=== PATIENT | male | born 1935 | race Caucasian/White ===

== ENCOUNTER 2018-01-14 10:01 | Inpatient (IN) ==
[2018-01-14] MEDS ORDERED: Acetaminophen 325 MG TABLET PO PRN (20:04)
[2018-01-14] MEDS ORDERED: *HR* HYDROcodone/Acet 5/325 mg TABLET PO PRN (20:07)
[2018-01-14] MEDS ORDERED: risperiDONE 0.25 MG TABLET PO SCH (21:00)
[2018-01-15 05:48] LABS: Basophils % 0.3 %; Eosinophils # 0.2 K/mcL (0.0-0.6); Eosinophils % 2.2 %; Hematocrit 23.5 % (37.5-50.1); Hemoglobin 7.9 g/dL (12.9-16.9); Immature Granulocytes % 0.9 % (0-4); Lymphocytes # 1.7 K/mcL (0.6-4.6); Lymphocytes % 18.9 %; Mean Corpuscular HGB Conc 33.6 g/dL (31.6-35.5); Mean Corpuscular Hemoglobin 31.2 pg (28.0-33.3); Mean Corpuscular Volume 92.9 fL (83.0-100.0); Mean Platelet Volume 10.6 fL (9.4-12.4); Monocytes # 0.9 K/mcL (0.0-1.3); Monocytes % 10.3 %; Neutrophils # 6.2 K/mcL (1.6-8.9); Platelet Count 164 K/mcL (140-400); Red Blood Count 2.53 M/mcL (4.19-5.50); Red Cell Distribution Width 13.4 % (11.5-14.5); Segmented Neutrophils % 67.4 %
[2018-01-15 05:49] LABS: INR 1.2; Prothrombin Time 12.9 Seconds (9.4-12.1)
[2018-01-15] MEDS ORDERED: *HR* Enoxaparin 40 MG/0.4 ML SYRINGE SQ SCH (06:00)
[2018-01-15 06:03] LABS: BUN/Creatinine Ratio 34 (6-26); Blood Urea Nitrogen 22 mg/dL (8-23); Carbon Dioxide 28 mEq/L (23-29); Chloride 105 mEq/L (98-107); Glucose 96 mg/dL (70-105); Osmolality,Calculated 289 (280-300); Potassium 3.7 mEq/L (3.5-5.1); Sodium 138 mEq/L (136-145); eGFR For African Americans > 60 (> 60); eGFR For Non-African Americans > 60 (> 60)
[2018-01-15] MEDS ORDERED: Cholecalciferol (D-3) 1,000 UNIT TABLET PO SCH (09:00)
[2018-01-15] MEDS ORDERED: Aspirin Enteric Coated 81 MG Tablet PO SCH (09:00)
[2018-01-15 14:16] VITALS: BP 108/54
[2018-01-15] MEDS ORDERED: Aspirin 325 MG TABLET PO STA (14:45)
[2018-01-15] MEDS ORDERED: Nitroglycerin 0.4 MG TAB.SUBL SL PRN (14:49)
[2018-01-15 15:00] LABS: Basophils % 0.3 %; Eosinophils # 0.2 K/mcL (0.0-0.6); Eosinophils % 2.2 %; Hematocrit 24.2 % (37.5-50.1); Hemoglobin 8.3 g/dL (12.9-16.9); Immature Granulocytes % 1.1 % (0-4); Lymphocytes # 1.6 K/mcL (0.6-4.6); Lymphocytes % 17.6 %; Mean Corpuscular HGB Conc 34.3 g/dL (31.6-35.5); Mean Corpuscular Hemoglobin 31.9 pg (28.0-33.3); Mean Corpuscular Volume 93.1 fL (83.0-100.0); Mean Platelet Volume 9.9 fL (9.4-12.4); Monocytes # 0.9 K/mcL (0.0-1.3); Monocytes % 9.7 %; Neutrophils # 6.3 K/mcL (1.6-8.9); Platelet Count 189 K/mcL (140-400); Red Cell Distribution Width 13.5 % (11.5-14.5); Segmented Neutrophils % 69.1 %
[2018-01-15 15:06] LABS: INR 1.2; Prothrombin Time 12.9 Seconds (9.4-12.1)
[2018-01-15 15:08] LABS: Activated Partial Thrombo Time 26.5 Seconds (26.0-36.0)
[2018-01-15 15:16] LABS: BUN/Creatinine Ratio 32 (6-26); Blood Urea Nitrogen 22 mg/dL (8-23); Carbon Dioxide 29 mEq/L (23-29); Chloride 103 mEq/L (98-107); Glucose 102 mg/dL (70-105); Osmolality,Calculated 286 (280-300); Potassium 3.6 mEq/L (3.5-5.1); Sodium 136 mEq/L (136-145); eGFR For African Americans > 60 (> 60); eGFR For Non-African Americans > 60 (> 60)
[2018-01-15 16:09] LABS: Thyroid Stimulating Hormone 3.367 mcIU/mL (0.340-5.600)
--- NOTE | 2018-01-15 17:13 | Discharge Summary ---
Orders not resulted at time of discharge: Pending orders 01/15/18 14:49 EKG [ECG 12 lead ECG] [ECG] Stat 01/15/18 16:50 Troponin I Stat Date of Encounter: 01/15/18 Time of Encounter: 17:11 - Discharge Diagnosis (1) Chest pain Priority: Primary Status: Acute Qualifiers: Qualified Code(s): I20.0 - Unstable angina (2) Unstable angina Priority: Primary Status: Acute (3) Hip fracture Priority: Secondary Status: Acute Qualifiers: Encounter type: subsequent encounter Qualified Code(s): S72.001D - Fracture of unspecified part of neck of right femur, subsequent encounter for closed fracture with routine healing (4) Atrial fibrillation Priority: Secondary Status: Chronic Qualifiers: Atrial fibrillation type: persistent Qualified Code(s): I48.1 - Persistent atrial fibrillation (5) Dementia Priority: Secondary Status: Chronic Comments: moderate Qualifiers: Alzheimer's disease onset: late-onset Dementia behavioral disturbance: without behavioral disturbance Qualified Code(s): G30.1 - Alzheimer's disease with late onset; F02.80 - Dementia in other diseases classified elsewhere without behavioral disturbance; F02.80 - Dementia in other diseases classified elsewhere without behavioral disturbance; F02.80 - Dementia in other diseases classified elsewhere without behavioral disturbance (6) Urinary retention Priority: Secondary Status: Acute Hospital course: Mr. Gilliland is a 82 year old male with pmh of atrial fib s/p right hip fracture who experienced chest pain today. No prior cardiovascular history known , but bedsite ECG showed ST depression in leads V1/2/3, which appear to be new today. Hypodermically stable, he recieved asa 325mg none coated X1. Baseline Bp on the low side, and we held off on nitro. His pain resolved and we obtain blood work. His intial chest pain resolved but again presented in the same place, left side without radiation. Another set of ECG was obtained without any changes. Initial trop neg. Improved Hgb from prior 7.9 to 8.3. Overall appear compfortable. Another set of trop was ordered and will be adding D. Dimer. Second Trop was also neg. Spoke with cards over the phone, and given that pt is showing new depression in other leads, it was recommended that he is transferred from rehab inpatient unit to main hospital Discharge discussed with: other - Time Spent with Patient Total time spent providing and/or coordinating discharge services: Greater than 30 minutes - Discharge Medications Home Medications: Aspirin [Lo-Dose Aspirin EC] 81 mg PO DAILY 01/10/18 [History] Donepezil HCl [Aricept] 5 mg PO DAILY 01/10/18 [History] Acetaminophen [Tylenol] 650 mg PO Q6HR PRN tablet 01/14/18 [Rx] Cholecalciferol (D-3) [Vitamin D] 2,000 unit PO DAILY tablet 01/14/18 [Rx] Enoxaparin [Lovenox] 40 mg SQ 0600 syringe 01/14/18 [Rx] Metoprolol [Lopressor] 25 mg PO BID tablet 01/14/18 [Rx] risperiDONE [RisperDAL] 0.25 mg PO HS tablet 01/14/18 [Rx] Allergies/Adverse Reactions: 3 Allergy/AdvReac Type Severity Reaction Status Date / Time No Known Allergies Allergy Verified 01/10/18 15:12 Date of admission: 01/14/18 19:28 Primary care physician: PCP NONE Consults: 01/14/18 20:09 Consult to Occupational Therapy [CONS] Routine Comment: Eval and Treat Reason for Consult: Eval and Treat Does patient have active BEDREST order?: No Is patient medically & hemodynamically stable?: Yes Consult to Physical Therapy [CONS] Routine Comment: Eval and Treat Reason for Consult: Eval and Treat Does patient have active BEDREST order?: No Is patient medically & hemodynamically stable?: Yes Consult to Recreational Therapy [CONS] Routine Comment: Consult to Stonemason Supervisor [CONS] Routine Reason for SW Consult: Discharge Planning - Constitutional Vitals: Temp Pulse Resp BP Pulse Ox 97.6 F 96 16 108/54 98 01/15/18 11:00 01/15/18 16:07 01/15/18 16:07 01/15/18 16:07 01/15/18 16:07 General appearance: Present: A&O X 2 - Head Head exam: Present: atraumatic, normocephalic - Eye Eye exam: Present: PERRL, conjuntiva pink, sclera anicteric Pupils: Present: PERRL - Neck Neck exam general surgery: Present: supple, trachea midline. Absent: lymphadenopathy - Respiratory Respiratory exam: Present: CTAB. Absent: accessory muscle use, rales, rhonchi, wheezes - Cardiovascular Cardiovascular exam: Present: RRR, +S1, +S2. Absent: diastolic murmur, gallop, rubs, systolic murmur - GI/Abdominal GI/Abdominal exam: Present: normal bowel sounds, soft, no peritoneal signs. Absent: distended, tenderness - Extremities Exam Extremities exam: Present: pedal edema, warm, radial pulses palpable and symmetrical. Absent: calf tenderness, cyanotic Additional comments: right hip incision, painful right lower extremity ROM at the hip area - Neurological Exam Neurological exam: Present: CN II-XII intact, no focal deficits. Absent: normal gait, pronater drift, facial droop, speech deficit - Skin Skin exam: Present: dry, intact - Patient Status Disposition: Transfer Intermediate Care Fac Condition: Serious - Discharge Instructions Follow Up With: NONE,PCP [Primary Care Provider] -
--- NOTE | 2018-01-18 09:58 | Internal Med History&Physical ---
Date of Encounter: 01/18/18 Time of Encounter: 09:56 Internal Medicine - H&P: HPI History of present illness: This patient was discharged before he could be seen by me or the cross-covering provider. please see discharge summary, day of his admission. Past Med Surg Social Fam HX - Past Medical History Medical history: atrial fibrillation, dementia, hyperlipidemia Psychiatric history: no psych history - Past Surgical History Surgical History: appendectomy - Social History Smoking Status: Never smoker Smokeless Tobacco Status: No Alcohol use: none Drug use: none - Family History Mother Living Status: Internal Medicine - H&P: Meds Aspirin [Lo-Dose Aspirin EC] 81 mg PO DAILY 01/10/18 [History] Donepezil HCl [Aricept] 5 mg PO DAILY 01/10/18 [History] Acetaminophen [Tylenol] 650 mg PO Q6HR PRN tablet 01/14/18 [Rx] Cholecalciferol (D-3) [Vitamin D] 2,000 unit PO DAILY tablet 01/14/18 [Rx] Enoxaparin [Lovenox] 40 mg SQ 0600 syringe 01/14/18 [Rx] Metoprolol [Lopressor] 25 mg PO BID tablet 01/14/18 [Rx] risperiDONE [RisperDAL] 0.25 mg PO HS tablet 01/14/18 [Rx] 3 Allergy/AdvReac Type Severity Reaction Status Date / Time No Known Allergies Allergy Verified 01/10/18 15:12 All Systems PM: A 10-system review of systems was performed and is negative for pertinent findings except as documented above in the HPI. - Constitutional Vitals: Temp Pulse Resp BP Pulse Ox 97.6 F 96 16 108/54 98 01/15/18 11:00 01/15/18 16:07 01/15/18 16:07 01/15/18 16:07 01/15/18 16:07 General appearance: Present: A&O X 2 Internal Med - H&P Results - Labs CBC & Chem 7: 01/15/18 14:45 01/15/18 14:45
--- NOTE | 2018-01-19 00:33 | Electrocardiograph Report ---
[place] [id number] Test Date: 2018-01-15 Pat Name: Alfie Gilliland Department: 2001 Room: 115 Gender: M [facility] Internship: : 1935 Requested By: Edgar Mccallum Order Number: [id number] Reading MD: Alcira Claire Measurements Intervals [place] Rate: 94 P: CT: 0 QRS: -26 QRSD: 97 T: -31 QT: 379 QTc: 430 Interpretive Statements ATRIAL FIBRILLATION BORDERLINE LEFT AXIS DEVIATION [QRS AXIS < -20] MODERATE ST DEPRESSION [0.05+ mV ST DEPRESSION] LEAD II NOT SUITABLE FOR INTERPRETATION Electronically Signed On 01-19-2018 0:31:52 EDT by Alcira Claire
== END 2018-01-15 19:00 | disposition short-term general hospital (02) | DRG 560 ==
LOC: INPGRE 19:28

== ENCOUNTER 2018-01-20 14:38 | Inpatient (IN) ==
[2018-01-20] MEDS ORDERED: Nitroglycerin 0.4 MG TAB.SUBL SL PRN (20:34)
[2018-01-20] MEDS ORDERED: DiphenhydraMINE CREAM 28.4 GM TUBE TP PRN (20:34)
[2018-01-20] MEDS: risperiDONE 1 MG TABLET PO SCH (22:30)
[2018-01-21] MEDS: *HR* Enoxaparin 40 MG/0.4 ML SYRINGE SQ SCH (06:45)
[2018-01-21 07:04] LABS: Basophils # 0.1 K/mcL (0.0-0.2); Basophils % 0.4 %; Eosinophils # 0.2 K/mcL (0.0-0.6); Eosinophils % 1.6 %; Hematocrit 29.9 % (37.5-50.1); Hemoglobin 10.2 g/dL (12.9-16.9); Immature Granulocytes % 1.5 % (0-4); Lymphocytes # 1.7 K/mcL (0.6-4.6); Lymphocytes % 13.2 %; Mean Corpuscular HGB Conc 34.1 g/dL (31.6-35.5); Mean Corpuscular Hemoglobin 32.1 pg (28.0-33.3); Mean Platelet Volume 9.2 fL (9.4-12.4); Monocytes % 7.3 %; Neutrophils # 9.9 K/mcL (1.6-8.9); Platelet Count 368 K/mcL (140-400); Red Blood Count 3.18 M/mcL (4.19-5.50)
[2018-01-21 07:26] LABS: BUN/Creatinine Ratio 26 (6-26); Blood Urea Nitrogen 20 mg/dL (8-23); Calcium 8.7 mg/dL (8.6-10.3); Carbon Dioxide 27 mEq/L (23-29); Chloride 105 mEq/L (98-107); Glucose 97 mg/dL (70-105); Osmolality,Calculated 287 (280-300); Sodium 137 mEq/L (136-145); eGFR For African Americans > 60 (> 60); eGFR For Non-African Americans > 60 (> 60)
[2018-01-21] MEDS: Cholecalciferol (D-3) 1,000 UNIT TABLET PO SCH (08:51)
[2018-01-21] MEDS: Aspirin Enteric Coated 81 MG Tablet PO SCH (08:51)
[2018-01-21] MEDS: Acetaminophen 325 MG TABLET PO PRN ×3 (10:48→23:58)
--- NOTE | 2018-01-21 13:43 | Internal Med History&Physical ---
Date of Encounter: 01/21/18 Time of Encounter: 13:38 Assessment and Plan (1) History of repair of right hip joint Current visit: Yes Status: Acute No acute issues. Patient continues with complaints of moderate pain to right hip during mobilization. Patient noted to have a moderate to large amount of ecchymosis surrounding surgical incision, which remains dry and intact. Patient with an antalgic movement of right hip. Patient being evaluate by physical therapy with pending recommendations. We will continue with current plan of care. We will review patient's current medications (2) Rash Current visit: Yes Status: Acute Patient noted to have a rash to his entire back and trunk. No open wounds noted. Patient complains of itching. Patient is poor historian and is unaware how long he has had this rash. We will repeat current medications for possible source. We will continue with Benadryl and will start on a prednisone burst. (3) Dementia Current visit: No Status: Chronic No acute behavior issues. Patient has been appropriate with conversation and interacting well with staff. We will continue on current medications Qualifiers: Dementia type: unspecified type Dementia behavioral disturbance: without behavioral disturbance Qualified Code(s): F03.90 - Unspecified dementia without behavioral disturbance (4) Urinary retention Current visit: No Status: Acute Patient continues with Vera catheter with clear yellow urine received. Patient to follow-up with Dr. Ramos, or urologist in 1-2 weeks and to continue with Vera catheter until seen by him. Patient to continue on Flomax. (5) Chest pain Current visit: No Status: Acute No complaints of chest discomforts or palpitations. Vital signs stable. We will continue to monitor and continue with current medications. Qualifiers: Chest pain type: unspecified Qualified Code(s): R07.9 - Chest pain, unspecified (6) HTN (hypertension) Current visit: No Status: Chronic Vital signs stable. We will continue with current medications. Qualifiers: Hypertension type: essential hypertension Qualified Code(s): I10 - Essential (primary) hypertension Internal Medicine - H&P: HPI Chief complaint: right hip replacement Admitted From: Intrahospital Transfer Plans for Post Hospital Care: Home History of present illness: Mr. Gilliland is a 82 year old male, who recently undergoing right hip repair for right hip fracture. Patient was at a rehabilitation facility undergoing physical therapy after right hip repair and began to experience chest pain. He was brought to [facility]. EKG showed a controlled rate of A. fib with no ST-T wave abnormalities troponins were negative. Patient was unable to complete stress test due to pain and elevated heart rate. TTE 01/11/18 showed preserved EF Cardiology was consulted and recommended canceling stress test and continue to monitor. Advising once he heals from his hip replacement consider stress test if chest pain reoccurs. Patient has been chest pain-free during admission at hospital. Patient returned to rehabilitation facility for further recovery and strengthening due to his deconditioning secondary to his right hip replacement. Patient with a past medical history of chronic atrial fibrillation, urinary retention with Vera placement, hyperlipidemia and dementia. Patient complains of moderate pain to his right hip which increases during mobilization. Right hip noted to have a large amount of ecchymosis surrounding surgical area, but surgical incision remains dry and intact. No limits to range of motion noted, but patient does grimace during mobilization. Patient also complains of itching to his back and upon inspection noted to have a rash covering his trunk and back. Patient denies any dyspnea, palpitations or chest discomforts. Past Med Surg Social Fam HX - Past Medical History Medical history: atrial fibrillation, dementia, hyperlipidemia Psychiatric history: no psych history - Past Surgical History Surgical History: appendectomy - Social History Smoking Status: Never smoker Smokeless Tobacco Status: No Alcohol use: none Drug use: none - Family History Mother Living Status: Internal Medicine - H&P: Meds Aspirin [Lo-Dose Aspirin EC] 81 mg PO DAILY 01/10/18 [History] Donepezil HCl [Aricept] 5 mg PO DAILY 01/10/18 [History] Acetaminophen [Tylenol] 650 mg PO Q6HR PRN tablet 01/14/18 [Rx] Cholecalciferol (D-3) [Vitamin D] 2,000 unit PO DAILY tablet 01/14/18 [Rx] Enoxaparin [Lovenox] 40 mg SQ 0600 syringe 01/14/18 [Rx] Metoprolol [Lopressor] 25 mg PO BID tablet 01/14/18 [Rx] risperiDONE [RisperDAL] 0.25 mg PO HS tablet 01/14/18 [Rx] DiphenhydraMINE [Benadryl] 1 appl TP QID PRN tube 01/20/18 [Rx] DiphenhydraMINE [Benadryl] 25 mg PO Q6HR PRN capsule 01/20/18 [Rx] Nitroglycerin 0.4 mg SL Q5MIN PRN tab.subl 01/20/18 [Rx] 3 Allergy/AdvReac Type Severity Reaction Status Date / Time No Known Allergies Allergy Verified 01/10/18 15:12 All Systems PM: A 10-system review of systems was performed and is negative for pertinent findings except as documented above in the HPI. - Constitutional Constitutional: as per HPI, no chills, no fever(s), no night sweats - EENT Eyes: no change in vision, no discharge, no pain, no photophobia Ears: no ear discharge, no ear pain, no tinnitus Nose, mouth and throat: no dysphagia, no nasal discharge, no neck pain, no sore throat - Cardiovascular Cardiovascular ROS IM: as per HPI, no chest pain, no diaphoresis, no dyspnea, no lightheadedness, no palpitations, no syncope - Respiratory Respiratory: as per HPI, no cough, no dyspnea, no wheezing, no excessive phlegm production - Gastrointestinal Gastrointestinal: no abdominal pain, no diarrhea, no hematemesis, no hematochezia, no melena, no nausea, no vomiting - Musculoskeletal Musculoskeletal ROS IM: no numbness, no tingling - Integumentary Integumentary IM: as per HPI, no rash, no unusual bruising - Neurological Neurological ROS: no confusion, no convulsions, no focal weakness, no numbness, no tingling, no tremor(s) - Hematologic/Lymphatic Hematologic/Lymphatic: no easy bruising - Constitutional Vitals: Temp Pulse Resp BP Pulse Ox 97.8 F 94 16 93/60 94 01/21/18 08:28 01/21/18 12:41 01/21/18 12:41 01/21/18 12:41 01/21/18 12:41 General appearance: Present: A&O X 3 - Head Head exam: Present: atraumatic, normocephalic - Eye Eye exam: Present: PERRL, conjuntiva pink, sclera anicteric Pupils: Present: PERRL - Neck Neck exam general surgery: Present: supple, trachea midline. Absent: lymphadenopathy - Respiratory Respiratory exam: Present: CTAB. Absent: accessory muscle use, rales, rhonchi, wheezes - Cardiovascular Cardiovascular exam: Present: irregular rhythm, RRR, +S1, +S2. Absent: diastolic murmur, gallop, rubs, systolic murmur - GI/Abdominal GI/Abdominal exam: Present: normal bowel sounds, soft, no peritoneal signs. Absent: distended, tenderness - Extremities Exam Extremities exam: Present: warm, radial pulses palpable and symmetrical. Absent : calf tenderness, cyanotic, pedal edema Additional comments: Right hip with moderate amount of ecchymosis and swelling surrounding surgical site. Surgical site remains with incision dry and intact. Distal pulses easily palpated with capillary refill less than 3 seconds - Neurological Exam Neurological exam: Present: CN II-XII intact, oriented X3, no focal deficits. Absent: pronater drift, facial droop, speech deficit - Skin Skin exam: Present: dry, intact Additional comments: Patient noted to have a rash to his entire trunk area. No open wounds. Internal Med - H&P Results - Labs CBC & Chem 7: 01/21/18 06:52 01/21/18 06:52 Labs: Short CBC 01/21/18 Range/Units 06:52 WBC 13.0 H (4.3-11.1) K/mcL Hgb 10.2 L (12.9-16.9) g/dL Hct 29.9 L (37.5-50.1) % Plt Count 368 (140-400) K/mcL Neutrophils # 9.9 H (1.6-8.9) K/mcL BMP 01/21/18 06:52 Sodium 137 Potassium 4.0 Chloride 105 Carbon Dioxide 27 BUN 20 Creatinine 0.78 Glucose 97 Calcium 8.7
[2018-01-21] MEDS: risperiDONE 1 MG TABLET PO SCH (23:58)
[2018-01-22] MEDS: *HR* Enoxaparin 40 MG/0.4 ML SYRINGE SQ SCH (06:51)
[2018-01-22] MEDS: Acetaminophen 325 MG TABLET PO PRN (10:20)
[2018-01-22] MEDS: Cholecalciferol (D-3) 1,000 UNIT TABLET PO SCH (10:20)
[2018-01-22] MEDS: Aspirin Enteric Coated 81 MG Tablet PO SCH (10:20)
[2018-01-22] MEDS: traMADol 50 MG TABLET PO PRN (12:22)
--- NOTE | 2018-01-22 15:48 | Internal Med Progress Note ---
Date of Encounter: 01/22/18 Time of Encounter: 15:47 - Assessment and plan (1) Hip fracture Current Visit: No Status: Acute Assessment and plan: Clinically stable and participating in therapy. Qualifiers: Encounter type: subsequent encounter Laterality: right Fracture healing: with routine healing Qualified Code(s): S72.001D - Fracture of unspecified part of neck of right femur, subsequent encounter for closed fracture with routine healing (2) Hypotension Current Visit: Yes Status: Acute Assessment and plan: We will put hold parameters on his cardiovascular medications and will continue to follow. Will check screening labs to make sure he is not demonstrating renal or protein issues, anemia acutely, etc. We may need to consider brief use of IV fluids. Qualifiers: Hypotension type: unspecified hypotension type Qualified Code(s): I95.9 - Hypotension, unspecified (3) Atrial fibrillation Current Visit: No Status: Chronic Assessment and plan: Clinically stable. Qualifiers: Atrial fibrillation type: persistent Qualified Code(s): I48.1 - Persistent atrial fibrillation (4) Dementia Current Visit: No Status: Chronic Assessment and plan: He seems pretty lucid whenever I examine him. However, he does answer with some non sequiturs. We will continue to follow, clinically. Qualifiers: Dementia type: unspecified type Dementia behavioral disturbance: without behavioral disturbance Qualified Code(s): F03.90 - Unspecified dementia without behavioral disturbance (5) Rash Current Visit: Yes Status: Acute Assessment and plan: He is complaining less of itching and we will continue topical hydrocortisone cream, for now. - Time Spent With Patient 25 - 35 minutes - Subjective Interval history: Patient states that he is feeling fine. He denies any trouble, at all. On further questioning, he admits to right hip pain and sepsis, "I can tell that it is there. It does not really bother me." He denies other acute issues. He denies lightheadedness or dizziness. Patient has no complaint of chest discomfort, dyspnea, orthopnea, palpitations, nausea or vomiting, constipation or diarrhea, other changes in bowel habits, difficulty with urination, rash or itching, or other new complaints, except as mentioned above. Review of systems is otherwise unremarkable. - Constitutional Vitals: Temp Pulse Resp BP Pulse Ox 97.4 F L 94 18 94/60 97 01/22/18 07:24 01/22/18 07:24 01/22/18 07:24 01/22/18 07:24 01/22/18 07:24 Exam: Examination: (Except as mentioned above): General: In no apparent distress. Alert and oriented 3. Nondiaphoretic. Head: Atraumatic and normocephalic. Respiratory: No use of accessory muscles. Lungs are clear throughout. Normal airflow. Cardiovascular: Regular rate and rhythm without murmur appreciated. Abdomen: Bowel sounds are normal. No hepatosplenomegaly mass or tenderness appreciated. Extremities: No cyanosis clubbing or edema. Skin: Warm and non-diaphoretic with no new lesions noted. Internal Medicine: Result - Labs CBC & Chem 7: 01/21/18 06:52 01/21/18 06:52 Consult Discharge Plan - Plan Referrals: NONE,PCP [Primary Care Provider] -
[2018-01-22 19:26] LABS: Basophils % 0.3 %; Eosinophils # 0.3 K/mcL (0.0-0.6); Eosinophils % 2.5 %; Hematocrit 28.2 % (37.5-50.1); Hemoglobin 9.5 g/dL (12.9-16.9); Immature Granulocytes % 0.9 % (0-4); Lymphocytes # 1.7 K/mcL (0.6-4.6); Lymphocytes % 14.8 %; Mean Corpuscular HGB Conc 33.7 g/dL (31.6-35.5); Mean Corpuscular Hemoglobin 32.3 pg (28.0-33.3); Mean Corpuscular Volume 95.9 fL (83.0-100.0); Monocytes # 0.8 K/mcL (0.0-1.3); Monocytes % 6.8 %; Neutrophils # 8.7 K/mcL (1.6-8.9); Platelet Count 351 K/mcL (140-400); Red Blood Count 2.94 M/mcL (4.19-5.50); Red Cell Distribution Width 15.3 % (11.5-14.5); Segmented Neutrophils % 74.7 %
[2018-01-22 20:02] LABS: Alanine Aminotransferase 16 Units/L (7-52); Albumin 2.9 g/dL (3.5-5.7); Albumin/Globulin Ratio 1.3 (1.1-2.2); Alkaline Phosphatase 135 Units/L (34-104); Aspartate Amino Transferase 19 Units/L (13-39); BUN/Creatinine Ratio 27 (6-26); Bilirubin,Total 0.9 mg/dL (0.3-1.0); Blood Urea Nitrogen 24 mg/dL (8-23); Calcium 8.4 mg/dL (8.6-10.3); Carbon Dioxide 27 mEq/L (23-29); Chloride 104 mEq/L (98-107); Globulin 2.3 g/dL (2.4-3.5); Glucose 114 mg/dL (70-105); Osmolality,Calculated 291 (280-300); Sodium 138 mEq/L (136-145); Total Protein 5.2 g/dL (6.4-8.9); eGFR For African Americans > 60 (> 60); eGFR For Non-African Americans > 60 (> 60)
[2018-01-22] MEDS: risperiDONE 1 MG TABLET PO SCH (20:13)
[2018-01-23 05:01] LABS: Basophils # 0.1 K/mcL (0.0-0.2); Basophils % 0.6 %; Eosinophils # 0.3 K/mcL (0.0-0.6); Eosinophils % 3.1 %; Hematocrit 28.5 % (37.5-50.1); Hemoglobin 9.6 g/dL (12.9-16.9); Immature Granulocytes % 1.1 % (0-4); Lymphocytes # 1.6 K/mcL (0.6-4.6); Lymphocytes % 15.5 %; Mean Corpuscular HGB Conc 33.7 g/dL (31.6-35.5); Mean Platelet Volume 9.2 fL (9.4-12.4); Monocytes # 0.8 K/mcL (0.0-1.3); Neutrophils # 7.3 K/mcL (1.6-8.9); Platelet Count 351 K/mcL (140-400); Red Cell Distribution Width 15.3 % (11.5-14.5); Segmented Neutrophils % 71.7 %
[2018-01-23] MEDS: *HR* Enoxaparin 40 MG/0.4 ML SYRINGE SQ SCH (05:28)
--- NOTE | 2018-01-23 05:40 | Internal Med Progress Note ---
Date of Encounter: 01/23/18 Time of Encounter: 05:40 - Assessment and plan (1) Hip fracture Current Visit: No Status: Acute Assessment and plan: Clinically stable and participating in therapy. Qualifiers: Encounter type: subsequent encounter Fracture type: closed Laterality: right Fracture healing: with routine healing Qualified Code(s): S72.001D - Fracture of unspecified part of neck of right femur, subsequent encounter for closed fracture with routine healing (2) Hypotension Current Visit: Yes Status: Acute Assessment and plan: We will continue to follow and he seems to be tolerating, well and improving.. Qualifiers: Hypotension type: unspecified hypotension type Qualified Code(s): I95.9 - Hypotension, unspecified (3) Atrial fibrillation Current Visit: No Status: Chronic Assessment and plan: Clinically stable. Qualifiers: Atrial fibrillation type: persistent Qualified Code(s): I48.1 - Persistent atrial fibrillation (4) Dementia Current Visit: No Status: Chronic Assessment and plan: Persistent but no apparent change. Qualifiers: Dementia type: unspecified type Dementia behavioral disturbance: without behavioral disturbance Qualified Code(s): F03.90 - Unspecified dementia without behavioral disturbance (5) Rash Current Visit: Yes Status: Acute Assessment and plan: Clinically improving. - Time Spent With Patient 25 - 35 minutes - Subjective Interval history: Patient is without complaint. He denies pain except with movement. He has moved his bowels and has no abdominal symptoms or complaints. While he seems oriented to me, nursing notes periods of disorientation, especially at night. Patient has no complaint of chest discomfort, dyspnea, orthopnea, palpitations, nausea or vomiting, constipation or diarrhea, other changes in bowel habits, difficulty with urination, rash or itching, or other new complaints, except as mentioned above. Review of systems is otherwise unremarkable. - Constitutional Vitals: Temp Pulse Resp BP Pulse Ox 97.8 F 78 16 92/58 98 01/22/18 19:12 01/22/18 19:12 01/22/18 19:12 01/22/18 20:47 01/22/18 19:12 Exam: Examination: (Except as mentioned above): General: In no apparent distress. Alert and oriented 3 (see above). Nondiaphoretic. Head: Atraumatic and normocephalic. Respiratory: No use of accessory muscles. Lungs are clear throughout. Normal airflow. Cardiovascular: Regular rate and rhythm without murmur appreciated. Abdomen: Bowel sounds are normal. No hepatosplenomegaly mass or tenderness appreciated. Extremities: No cyanosis clubbing or edema. Skin: Warm and non-diaphoretic with no new lesions noted. Internal Medicine: Result - Labs CBC & Chem 7: 01/23/18 04:43 01/22/18 19:18 Labs: Short CBC 01/22/18 01/23/18 Range/Units 19:18 04:43 WBC 11.7 H 10.2 (4.3-11.1) K/mcL Hgb 9.5 L 9.6 L (12.9-16.9) g/dL Hct 28.2 L 28.5 L (37.5-50.1) % Plt Count 351 351 (140-400) K/mcL Neutrophils # 8.7 7.3 (1.6-8.9) K/mcL BMP 01/22/18 19:18 Sodium 138 Potassium 4.0 Chloride 104 Carbon Dioxide 27 BUN 24 H Creatinine 0.89 Glucose 114 H Calcium 8.4 L Liver Function 01/22/18 Range/Units 19:18 Total Bilirubin 0.9 (0.3-1.0) mg/dL AST 19 (13-39) Units/L ALT 16 (7-52) Units/L Alkaline Phosphatase 135 H (34-104) Units/L Albumin 2.9 L (3.5-5.7) g/dL Consult Discharge Plan - Plan Referrals: NONE,PCP [Primary Care Provider] -
[2018-01-23] MEDS: Aspirin Enteric Coated 81 MG Tablet PO SCH (09:24)
[2018-01-23] MEDS: Cholecalciferol (D-3) 1,000 UNIT TABLET PO SCH (09:25)
[2018-01-23 17:43] LABS: Bilirubin,Urine Negative (Negative); Blood,Urine Large (Negative); Clarity,Urine Clear (Clear); Color,Urine Yellow (Yellow); Glucose,Urine (UA) Normal (Normal); Ketones,Urine Negative (Negative); Leukocyte Esterase,Urine Negative (Negative); Nitrite,Urine Negative (Negative); Protein,Urine >=300 mg/dL (Neg-Trace); Specific Gravity,Urine >= 1.030 (1.010-1.025); Urobilinogen,Urine Normal (Normal)
[2018-01-23 17:44] LABS: RBC,Urine 50-100 per hpf (0-3); WBC,Urine 0-3 per hpf (0-3)
[2018-01-23] MEDS: risperiDONE 1 MG TABLET PO SCH (19:46)
[2018-01-23] MEDS: traMADol 50 MG TABLET PO PRN (19:48)
[2018-01-24] MEDS: *HR* Enoxaparin 40 MG/0.4 ML SYRINGE SQ SCH (05:20)
[2018-01-24 06:08] LABS: Basophils % 0.4 %; Eosinophils # 0.2 K/mcL (0.0-0.6); Eosinophils % 2.3 %; Hematocrit 29.8 % (37.5-50.1); Hemoglobin 9.9 g/dL (12.9-16.9); Immature Granulocytes % 1.1 % (0-4); Lymphocytes # 1.7 K/mcL (0.6-4.6); Lymphocytes % 16.6 %; Mean Corpuscular HGB Conc 33.2 g/dL (31.6-35.5); Mean Corpuscular Hemoglobin 31.6 pg (28.0-33.3); Mean Corpuscular Volume 95.2 fL (83.0-100.0); Mean Platelet Volume 9.4 fL (9.4-12.4); Monocytes # 0.7 K/mcL (0.0-1.3); Monocytes % 7.2 %; Neutrophils # 7.4 K/mcL (1.6-8.9); Platelet Count 390 K/mcL (140-400); Red Blood Count 3.13 M/mcL (4.19-5.50); Segmented Neutrophils % 72.4 %
[2018-01-24 06:32] LABS: BUN/Creatinine Ratio 30 (6-26); Blood Urea Nitrogen 24 mg/dL (8-23); Calcium 8.6 mg/dL (8.6-10.3); Carbon Dioxide 29 mEq/L (23-29); Chloride 102 mEq/L (98-107); Glucose 89 mg/dL (70-105); Osmolality,Calculated 282 (280-300); Potassium 4.2 mEq/L (3.5-5.1); Sodium 134 mEq/L (136-145); eGFR For African Americans > 60 (> 60); eGFR For Non-African Americans > 60 (> 60)
[2018-01-24] MEDS: Acetaminophen 325 MG TABLET PO PRN ×2 (10:10→20:43)
[2018-01-24] MEDS: Cholecalciferol (D-3) 1,000 UNIT TABLET PO SCH (10:10)
[2018-01-24] MEDS: Aspirin Enteric Coated 81 MG Tablet PO SCH (10:10)
[2018-01-24] MEDS: traMADol 50 MG TABLET PO PRN (13:37)
--- NOTE | 2018-01-24 14:36 | Internal Med Progress Note ---
Date of Encounter: 01/24/18 Time of Encounter: 14:33 - Assessment and plan (1) Hip fracture Current Visit: No Status: Acute Assessment and plan: continue PT/OT .. f/u with ortho as scheduled. Qualifiers: Encounter type: subsequent encounter Fracture type: closed Laterality: right Fracture healing: with routine healing Qualified Code(s): S72.001D - Fracture of unspecified part of neck of right femur, subsequent encounter for closed fracture with routine healing (2) Atrial fibrillation Current Visit: No Status: Chronic Assessment and plan: rate and rythm stable. will monitor. Qualifiers: Atrial fibrillation type: persistent Qualified Code(s): I48.1 - Persistent atrial fibrillation - Time Spent With Patient less than 15 minutes - Subjective Interval history: participating well with therapy. nursing reports confused at times yet cooperative. scanlon in place. denies pain or any other complaints. maintaining appetite and hydration. - Constitutional Vitals: Temp Pulse Resp BP Pulse Ox 97.7 F 81 16 93/60 97 01/24/18 09:00 01/24/18 09:00 01/24/18 09:00 01/24/18 09:00 01/24/18 09:00 General appearance: Present: A&O X 3, pleasant, no acute distress, answers questions appropriately - Head Head exam: Present: atraumatic, normocephalic - Eye Eye exam: Present: PERRL, conjuntiva pink, sclera anicteric Pupils: Present: PERRL - Neck Neck exam general surgery: Present: supple, trachea midline. Absent: lymphadenopathy - Respiratory Respiratory exam: Present: CTAB. Absent: accessory muscle use, rales, rhonchi, wheezes - Cardiovascular Cardiovascular exam: Present: RRR, +S1, +S2. Absent: diastolic murmur, gallop, rubs, systolic murmur - GI/Abdominal GI/Abdominal exam: Present: normal bowel sounds, soft, no peritoneal signs. Absent: distended, tenderness - Extremities Exam Extremities exam: Present: warm, radial pulses palpable and symmetrical. Absent : calf tenderness, cyanotic, pedal edema - Incison Incision: Present: clean and dry, intact, approximated - Neurological Exam Neurological exam: Present: CN II-XII intact, oriented X3, no focal deficits. Absent: pronater drift, facial droop, speech deficit - Skin Skin exam: Present: dry, intact Internal Medicine: Result - Labs CBC & Chem 7: 01/24/18 05:15 01/24/18 05:15 Labs: Short CBC 01/24/18 Range/Units 05:15 WBC 10.2 (4.3-11.1) K/mcL Hgb 9.9 L (12.9-16.9) g/dL Hct 29.8 L (37.5-50.1) % Plt Count 390 (140-400) K/mcL Neutrophils # 7.4 (1.6-8.9) K/mcL BMP 01/24/18 05:15 Sodium 134 L Potassium 4.2 Chloride 102 Carbon Dioxide 29 BUN 24 H Creatinine 0.80 Glucose 89 Calcium 8.6 Urine 01/23/18 Range/Units 17:30 Urine Color Yellow (Yellow) Urine Clarity Clear (Clear) Urine pH 6.0 (5.0-8.0) pH Units Ur Specific Browns >= 1.030 H (1.010-1.025) Urine Protein >=300 H (Neg-Trace) mg/dL Urine Glucose (UA) Normal (Normal) mg/dL Consult Discharge Plan - Plan Referrals: NONE,PCP [Primary Care Provider] -
[2018-01-24] MEDS: risperiDONE 1 MG TABLET PO SCH (20:43)
[2018-01-25] MEDS: *HR* Enoxaparin 40 MG/0.4 ML SYRINGE SQ SCH (05:45)
[2018-01-25] MEDS: Aspirin Enteric Coated 81 MG Tablet PO SCH (09:28)
[2018-01-25] MEDS: Cholecalciferol (D-3) 1,000 UNIT TABLET PO SCH (09:29)
[2018-01-25] MEDS: Acetaminophen 325 MG TABLET PO PRN (09:38)
[2018-01-25] MEDS: traMADol 50 MG TABLET PO PRN (10:38)
--- NOTE | 2018-01-25 10:59 | Internal Med Progress Note ---
Date of Encounter: 01/25/18 Time of Encounter: 10:57 - Assessment and plan (1) Hip fracture Current Visit: No Status: Acute Assessment and plan: continue PT/OT .. f/u with ortho as scheduled. continue tylenol and tramadol for pain. will monitor for effectiveness. Qualifiers: Encounter type: subsequent encounter Fracture type: closed Laterality: right Fracture healing: with routine healing Qualified Code(s): S72.001D - Fracture of unspecified part of neck of right femur, subsequent encounter for closed fracture with routine healing (2) Atrial fibrillation Current Visit: No Status: Chronic Assessment and plan: rate and rythm stable. will monitor. Qualifiers: Atrial fibrillation type: persistent Qualified Code(s): I48.1 - Persistent atrial fibrillation - Time Spent With Patient 25 - 35 minutes - Subjective Interval history: participating well with therapy. nursing reports confused at times yet cooperative. scanlon in place. c/o increased right hip pain. tylenol not effective. nurse gave tramadol. will monitor for effectiveness. - Constitutional Vitals: Temp Pulse Resp BP Pulse Ox 97.6 F 83 14 99/68 97 01/25/18 08:11 01/25/18 08:11 01/25/18 08:11 01/25/18 08:11 01/25/18 08:11 General appearance: Present: A&O X 2, pleasant, no acute distress, answers questions appropriately - Head Head exam: Present: atraumatic, normocephalic - Eye Eye exam: Present: PERRL, conjuntiva pink, sclera anicteric Pupils: Present: PERRL - Neck Neck exam general surgery: Present: supple, trachea midline. Absent: lymphadenopathy - Respiratory Respiratory exam: Present: CTAB. Absent: accessory muscle use, rales, rhonchi, wheezes - Cardiovascular Cardiovascular exam: Present: RRR, +S1, +S2. Absent: diastolic murmur, gallop, rubs, systolic murmur - GI/Abdominal GI/Abdominal exam: Present: normal bowel sounds, soft, no peritoneal signs. Absent: distended, tenderness - Extremities Exam Extremities exam: Present: warm, radial pulses palpable and symmetrical. Absent : calf tenderness, cyanotic, pedal edema - Incison Comments: right hip drsg dry and intact. no drainage or signs of infection. - Neurological Exam Neurological exam: Present: CN II-XII intact, oriented X3, no focal deficits. Absent: pronater drift, facial droop, speech deficit - Skin Skin exam: Present: dry, intact Internal Medicine: Result - Labs CBC & Chem 7: 01/24/18 05:15 01/24/18 05:15 Consult Discharge Plan - Plan Referrals: NONE,PCP [Primary Care Provider] -
[2018-01-25] MEDS: risperiDONE 1 MG TABLET PO SCH (20:22)
[2018-01-26] MEDS: *HR* Enoxaparin 40 MG/0.4 ML SYRINGE SQ SCH (04:57)
[2018-01-26] MEDS: Cholecalciferol (D-3) 1,000 UNIT TABLET PO SCH (09:19)
[2018-01-26] MEDS: Aspirin Enteric Coated 81 MG Tablet PO SCH (09:19)
[2018-01-26] MEDS: Acetaminophen 325 MG TABLET PO PRN (09:19)
--- NOTE | 2018-01-26 14:27 | Internal Med Progress Note ---
Date of Encounter: 01/26/18 Time of Encounter: 14:25 - Assessment and plan (1) Hip fracture Current Visit: No Status: Acute Assessment and plan: continue PT/OT .. f/u with ortho as scheduled. continue tylenol and tramadol for pain. will monitor for effectiveness. Qualifiers: Encounter type: subsequent encounter Fracture type: closed Laterality: right Fracture healing: with routine healing Qualified Code(s): S72.001D - Fracture of unspecified part of neck of right femur, subsequent encounter for closed fracture with routine healing (2) Atrial fibrillation Current Visit: No Status: Chronic Assessment and plan: rate and rythm stable. will monitor. Qualifiers: Atrial fibrillation type: persistent Qualified Code(s): I48.1 - Persistent atrial fibrillation (3) Urinary retention Current Visit: No Status: Acute Assessment and plan: was seen by urologist today. instructed to continue scanlon cath. (4) Rash Current Visit: Yes Status: Acute Assessment and plan: improvng, continue benadryl prn and cortisone cream for itching. - Subjective Interval history: participating well with therapy. nursing reports confused at times yet cooperative. scanlon in place and instructed by urology to continue. pain controlled. c/o itching on back due to rash. denies fever, chills NVD. - Constitutional Vitals: Temp Pulse Resp BP Pulse Ox 97.6 F 75 18 90/54 94 01/26/18 07:56 01/26/18 07:56 01/26/18 07:56 01/26/18 07:56 01/26/18 07:56 General appearance: Present: A&O X 2, pleasant, no acute distress, answers questions appropriately - Head Head exam: Present: atraumatic, normocephalic - Eye Eye exam: Present: PERRL, conjuntiva pink, sclera anicteric Pupils: Present: PERRL - Neck Neck exam general surgery: Present: supple, trachea midline. Absent: lymphadenopathy - Respiratory Respiratory exam: Present: CTAB. Absent: accessory muscle use, rales, rhonchi, wheezes - Cardiovascular Cardiovascular exam: Present: RRR, +S1, +S2. Absent: diastolic murmur, gallop, rubs, systolic murmur - GI/Abdominal GI/Abdominal exam: Present: normal bowel sounds, soft, no peritoneal signs. Absent: distended, tenderness - Extremities Exam Extremities exam: Present: warm, radial pulses palpable and symmetrical. Absent : calf tenderness, cyanotic, pedal edema - Incison Comments: right hip, drsg dry and intact. no drainage. no signs of infection. - Neurological Exam Neurological exam: Present: CN II-XII intact, oriented X3, no focal deficits. Absent: pronater drift, facial droop, speech deficit - Skin Skin exam: Present: dry, intact Additional comments: rash to upper back improving. skin intact. Internal Medicine: Result - Labs CBC & Chem 7: 01/24/18 05:15 01/24/18 05:15 Consult Discharge Plan - Plan Referrals: NONE,PCP [Primary Care Provider] -
[2018-01-26] MEDS: risperiDONE 1 MG TABLET PO SCH (20:16)
[2018-01-27] MEDS: traMADol 50 MG TABLET PO PRN ×3 (00:31→21:34)
[2018-01-27] MEDS: *HR* Enoxaparin 40 MG/0.4 ML SYRINGE SQ SCH (05:22)
[2018-01-27] MEDS: Acetaminophen 325 MG TABLET PO PRN ×2 (05:23→14:02)
[2018-01-27] MEDS: Aspirin Enteric Coated 81 MG Tablet PO SCH (09:51)
[2018-01-27] MEDS: Cholecalciferol (D-3) 1,000 UNIT TABLET PO SCH (09:51)
--- NOTE | 2018-01-27 11:02 | Internal Med Progress Note ---
Date of Encounter: 01/27/18 Time of Encounter: 11:00 - Assessment and plan (1) Hip fracture Current Visit: No Status: Acute Assessment and plan: continue PT/OT .. f/u with ortho as scheduled. continue tylenol and tramadol for pain. will monitor for effectiveness. Qualifiers: Encounter type: subsequent encounter Fracture type: closed Laterality: right Fracture healing: with routine healing Qualified Code(s): S72.001D - Fracture of unspecified part of neck of right femur, subsequent encounter for closed fracture with routine healing (2) Atrial fibrillation Current Visit: No Status: Chronic Assessment and plan: rate and rythm stable. will monitor. Qualifiers: Atrial fibrillation type: persistent Qualified Code(s): I48.1 - Persistent atrial fibrillation (3) Urinary retention Current Visit: No Status: Acute Assessment and plan: was seen by urologist today. instructed to continue scanlon cath. (4) Rash Current Visit: Yes Status: Resolved Assessment and plan: resolved. no sign of visible rash to back. - Time Spent With Patient less than 15 minutes - Subjective Interval history: participating well with therapy. scanlon in place and instructed by urology to continue. pain controlled. denies fever, chills NVD. rash on back not visible. maintaining appetite and hydration. bowels moving as normal. - Constitutional Vitals: Temp Pulse Resp BP Pulse Ox 98.0 F 77 16 92/63 97 01/27/18 07:38 01/27/18 07:38 01/27/18 07:38 01/27/18 07:38 01/27/18 07:38 General appearance: Present: A&O X 2, pleasant, no acute distress, answers questions appropriately - Head Head exam: Present: atraumatic, normocephalic - Eye Eye exam: Present: PERRL, conjuntiva pink, sclera anicteric Pupils: Present: PERRL - Neck Neck exam general surgery: Present: supple, trachea midline. Absent: lymphadenopathy - Respiratory Respiratory exam: Present: CTAB. Absent: accessory muscle use, rales, rhonchi, wheezes - Cardiovascular Cardiovascular exam: Present: RRR, +S1, +S2. Absent: diastolic murmur, gallop, rubs, systolic murmur - GI/Abdominal GI/Abdominal exam: Present: normal bowel sounds, soft, no peritoneal signs. Absent: distended, tenderness - Extremities Exam Extremities exam: Present: warm, radial pulses palpable and symmetrical. Absent : calf tenderness, cyanotic, pedal edema - Incison Comments: right hip incision drsg dry and intact. no sign of infection. - Neurological Exam Neurological exam: Present: CN II-XII intact, oriented X3, no focal deficits. Absent: pronater drift, facial droop, speech deficit - Skin Skin exam: Present: dry, intact Internal Medicine: Result - Labs CBC & Chem 7: 01/24/18 05:15 01/24/18 05:15 Consult Discharge Plan - Plan Referrals: NONE,PCP [Primary Care Provider] -
[2018-01-27] MEDS: risperiDONE 1 MG TABLET PO SCH (21:35)
[2018-01-28] MEDS: *HR* Enoxaparin 40 MG/0.4 ML SYRINGE SQ SCH (06:52)
[2018-01-28] MEDS: traMADol 50 MG TABLET PO PRN (06:52)
[2018-01-28] MEDS: Cholecalciferol (D-3) 1,000 UNIT TABLET PO SCH (10:22)
[2018-01-28] MEDS: Aspirin Enteric Coated 81 MG Tablet PO SCH (10:22)
[2018-01-28] MEDS: Acetaminophen 325 MG TABLET PO PRN ×2 (10:25→20:45)
--- NOTE | 2018-01-28 12:00 | Internal Med Progress Note ---
Date of Encounter: 01/28/18 Time of Encounter: 11:58 - Assessment and plan (1) History of repair of right hip joint Current Visit: Yes Status: Acute Assessment and plan: No acute issues. Surgical dressing remains in place and appears dry and intact. Noted ecchymosis around surgical site appears to be resolving over the past several days. No edema noted. Afebrile. Patient has been progressing well with physical therapy. (2) Dementia Current Visit: No Status: Chronic Assessment and plan: No acute issues. Patient remains somewhat confused but no behavior issues have been reported by nursing. Qualifiers: Dementia type: unspecified type Dementia behavioral disturbance: without behavioral disturbance Qualified Code(s): F03.90 - Unspecified dementia without behavioral disturbance (3) Urinary retention Current Visit: Yes Status: Acute Assessment and plan: No acute issues. Vrea catheter remains in place. Patient to follow-up with urology due to urine retention. (4) Chest pain Current Visit: Yes Status: Acute Assessment and plan: Patient denies any chest discomforts or palpitations. We will continue to monitor. Qualifiers: Chest pain type: unspecified Qualified Code(s): R07.9 - Chest pain, unspecified (5) HTN (hypertension) Current Visit: No Status: Chronic Assessment and plan: Vital signs stable. We will continue with current medications. Qualifiers: Hypertension type: essential hypertension Qualified Code(s): I10 - Essential (primary) hypertension - Time Spent With Patient less than 15 minutes - Subjective Interval history: Patient remains somewhat confused, but is appropriate during conversation. Patient denies any current discomforts or shortness of breath. - Constitutional Vitals: Temp Pulse Resp BP Pulse Ox 97.7 F 69 16 94/63 98 01/28/18 09:00 01/28/18 09:00 01/28/18 09:00 01/28/18 09:00 01/28/18 09:00 General appearance: Present: A&O X 2, pleasant, no acute distress, answers questions appropriately Exam: Oriented 2 but not to time. Patient able to answer complex questions and follow complex directions. - Head Head exam: Present: atraumatic, normocephalic - Eye Eye exam: Present: PERRL, conjuntiva pink, sclera anicteric Pupils: Present: PERRL - Neck Neck exam general surgery: Present: supple, trachea midline. Absent: lymphadenopathy - Respiratory Respiratory exam: Present: CTAB. Absent: accessory muscle use, rales, rhonchi, wheezes - Cardiovascular Cardiovascular exam: Present: RRR, +S1, +S2. Absent: diastolic murmur, gallop, rubs, systolic murmur - GI/Abdominal GI/Abdominal exam: Present: normal bowel sounds, soft, no peritoneal signs. Absent: distended, tenderness - Extremities Exam Extremities exam: Present: warm, radial pulses palpable and symmetrical. Absent : calf tenderness, cyanotic, pedal edema Additional comments: Right hip dressing remains dry and intact. Patient continues to have ecchymosis surrounding right hip surgical site, which appears to be resolving over the past several days. - Neurological Exam Neurological exam: Present: CN II-XII intact, no focal deficits. Absent: pronater drift, facial droop, speech deficit Additional comments: Patient remains somewhat confused, being oriented 2 but not to time. Remains relaxed and is appropriate with conversation. - Skin Skin exam: Present: dry, intact Internal Medicine: Result - Labs CBC & Chem 7: 01/24/18 05:15 01/24/18 05:15 Consult Discharge Plan - Plan Referrals: NONE,PCP [Primary Care Provider] -
[2018-01-28] MEDS ORDERED: Mag Hydrox/Al Hydrox/Simeth 30 ML UDC PO PRN (14:23)
[2018-01-28] MEDS: risperiDONE 1 MG TABLET PO SCH (20:45)
[2018-01-29] MEDS: *HR* Enoxaparin 40 MG/0.4 ML SYRINGE SQ SCH (05:10)
--- NOTE | 2018-01-29 09:06 | Internal Med Progress Note ---
Date of Encounter: 01/29/18 Time of Encounter: 09:04 - Assessment and plan (1) Hip fracture Current Visit: No Status: Acute Assessment and plan: s/p Hip Surgery stable getting his Rehab and seems to be doing well Qualifiers: Encounter type: subsequent encounter Fracture type: closed Laterality: right Fracture healing: with routine healing Qualified Code(s): S72.001D - Fracture of unspecified part of neck of right femur, subsequent encounter for closed fracture with routine healing (2) Atrial fibrillation Current Visit: No Status: Chronic Assessment and plan: stable rate no new issues continue to monitor Qualifiers: Atrial fibrillation type: persistent Qualified Code(s): I48.1 - Persistent atrial fibrillation (3) Dementia Current Visit: No Status: Chronic Assessment and plan: stable . He was able to answer simple questions well no agitation on meds no new change Qualifiers: Dementia type: unspecified type Dementia behavioral disturbance: without behavioral disturbance Qualified Code(s): F03.90 - Unspecified dementia without behavioral disturbance (4) Hypotension Current Visit: Yes Status: Acute Assessment and plan: cause most likely iatragenic On metoprolol small dose only at the present on hold .due to low BP needs to be careful and is a fall risk . adjust his meds as needed if continues to be on the lower side. Added factor is low H/H and anemia Add iron . Qualifiers: Hypotension type: unspecified hypotension type Qualified Code(s): I95.9 - Hypotension, unspecified - Time Spent With Patient 25 - 35 minutes - Subjective Interval history: no new complains Laying in bed pain free no SOB no nausea vomiting or any other complains - Constitutional Vitals: Temp Pulse Resp BP Pulse Ox 97.4 F L 83 16 86/56 98 01/28/18 19:16 01/28/18 19:16 01/28/18 19:16 01/28/18 19:16 01/28/18 19:16 General appearance: Present: A&O X 2, pleasant, no acute distress, answers questions appropriately - Head Head exam: Present: atraumatic - Eye Eye exam: Present: EOMI, PERRL - Neck Neck exam general surgery: Present: supple - Respiratory Respiratory exam: Present: CTAB. Absent: chest wall tenderness, decreased breath sounds, prolonged expiratory phase, respiratory distress, wheezes, tachypnea - Cardiovascular Cardiovascular exam: Present: irregular rhythm, +S1, +S2, systolic murmur. Absent: JVD Additional comments: soft systolic mummer at the apex - GI/Abdominal GI/Abdominal exam: Present: normal bowel sounds, soft. Absent: distended, guarding, rebound, rigid, tenderness - Extremities Exam Extremities exam: Absent: pedal edema, tenderness, warm - Incison Incision: Present: clean and dry, intact. Absent: draining, red, swollen, inflamed, erythema, purulent - Neurological Exam Neurological exam: Present: alert, CN II-XII intact, no focal deficits. Absent : facial droop, speech deficit Internal Medicine: Result - Labs CBC & Chem 7: 01/24/18 05:15 01/24/18 05:15 Consult Discharge Plan - Plan Referrals: NONE,PCP [Primary Care Provider] -
[2018-01-29] MEDS: Aspirin Enteric Coated 81 MG Tablet PO SCH (09:35)
[2018-01-29] MEDS: Cholecalciferol (D-3) 1,000 UNIT TABLET PO SCH (09:35)
[2018-01-29] MEDS: Acetaminophen 325 MG TABLET PO PRN (17:29)
[2018-01-29] MEDS: risperiDONE 1 MG TABLET PO SCH (21:28)
[2018-01-30] MEDS: *HR* Enoxaparin 40 MG/0.4 ML SYRINGE SQ SCH (05:37)
[2018-01-30] MEDS: traMADol 50 MG TABLET PO PRN ×2 (05:40→21:30)
[2018-01-30] MEDS: Cholecalciferol (D-3) 1,000 UNIT TABLET PO SCH (09:10)
[2018-01-30] MEDS: Aspirin Enteric Coated 81 MG Tablet PO SCH (09:10)
--- NOTE | 2018-01-30 10:13 | Internal Med Progress Note ---
Date of Encounter: 01/30/18 Time of Encounter: 10:11 - Assessment and plan (1) Hip fracture Current Visit: No Status: Acute Assessment and plan: stable in rehab doing fine incision is clean and healing well Qualifiers: Encounter type: subsequent encounter Fracture type: closed Laterality: right Fracture healing: with routine healing Qualified Code(s): S72.001D - Fracture of unspecified part of neck of right femur, subsequent encounter for closed fracture with routine healing (2) Atrial fibrillation Current Visit: No Status: Chronic Assessment and plan: stable rate no new complains He is not on any anticoagulation . His rate is slow and seems to be almost in sinus. he has hx of A fib Qualifiers: Atrial fibrillation type: persistent Qualified Code(s): I48.1 - Persistent atrial fibrillation (3) Dementia Current Visit: No Status: Chronic Assessment and plan: stable . He was able to answer simple questions well no agitation on meds no new change Qualifiers: Dementia type: unspecified type Dementia behavioral disturbance: without behavioral disturbance Qualified Code(s): F03.90 - Unspecified dementia without behavioral disturbance (4) Hypotension Current Visit: Yes Status: Acute Assessment and plan: Blood pressure is much better and stable asymptomatic Qualifiers: Hypotension type: unspecified hypotension type Qualified Code(s): I95.9 - Hypotension, unspecified - Subjective Interval history: In a good mood today and states that he slept well last night he denies any pain his hip . overall no complains or SOB or pain/He feels that rehab is helping. - Constitutional Vitals: Temp Pulse Resp BP Pulse Ox 97.5 F L 86 13 92/51 97 01/29/18 19:00 01/29/18 19:00 01/29/18 19:00 01/30/18 09:05 01/29/18 19:00 General appearance: Present: A&O X 2, pleasant, no acute distress, answers questions appropriately - Head Head exam: Present: atraumatic - Eye Eye exam: Present: EOMI, PERRL - Neck Neck exam general surgery: Present: full ROM, supple. Absent: tenderness, nuchal rigidity - Respiratory Respiratory exam: Present: CTAB. Absent: chest wall tenderness, respiratory distress, rhonchi, stridor, wheezes - Cardiovascular Cardiovascular exam: Present: irregular rhythm, +S1, +S2. Absent: JVD - GI/Abdominal GI/Abdominal exam: Present: normal bowel sounds, soft. Absent: distended, firm , guarding, rebound, rigid - Extremities Exam Extremities exam: Absent: pedal edema, tenderness - Incison Incision: Present: clean and dry, intact. Absent: draining, red, swollen, erythema, indurated - Neurological Exam Neurological exam: Present: alert, CN II-XII intact, oriented X3, no focal deficits. Absent: facial droop, speech deficit Internal Medicine: Result - Labs CBC & Chem 7: 01/24/18 05:15 01/24/18 05:15 Consult Discharge Plan - Plan Referrals: NONE,PCP [Primary Care Provider] -
[2018-01-30] MEDS: risperiDONE 1 MG TABLET PO SCH (21:27)
[2018-01-31] MEDS: *HR* Enoxaparin 40 MG/0.4 ML SYRINGE SQ SCH (05:50)
[2018-01-31] MEDS: traMADol 50 MG TABLET PO PRN (05:51)
--- NOTE | 2018-01-31 09:14 | Internal Med Progress Note ---
Date of Encounter: 01/31/18 Time of Encounter: 09:12 - Assessment and plan (1) History of repair of right hip joint Current Visit: Yes Status: Acute Assessment and plan: No acute issues. Surgical dressing remains in place and appears dry and intact. Noted ecchymosis around surgical site appears to resolved. No edema noted. Afebrile. Patient has been progressing well with physical therapy. (2) Dementia Current Visit: No Status: Chronic Assessment and plan: No acute issues. Patient remains somewhat confused but no behavior issues have been reported by nursing. Qualifiers: Dementia type: unspecified type Dementia behavioral disturbance: without behavioral disturbance Qualified Code(s): F03.90 - Unspecified dementia without behavioral disturbance (3) Urinary retention Current Visit: Yes Status: Acute Assessment and plan: No acute issues. Vera catheter remains in place. Patient to follow-up with urology due to urine retention. (4) Chest pain Current Visit: Yes Status: Acute Assessment and plan: Patient denies any chest discomforts or palpitations. We will continue to monitor. Qualifiers: Chest pain type: unspecified Qualified Code(s): R07.9 - Chest pain, unspecified (5) HTN (hypertension) Current Visit: No Status: Chronic Assessment and plan: Vital signs stable. We will continue with current medications. Qualifiers: Hypertension type: essential hypertension Qualified Code(s): I10 - Essential (primary) hypertension - Time Spent With Patient less than 15 minutes - Subjective Interval history: Patient remains somewhat confused, but is appropriate during conversation. Patient denies any current discomforts or shortness of breath. - Constitutional Vitals: Temp Pulse Resp BP Pulse Ox 97.7 F 83 18 86/56 97 01/31/18 07:00 01/31/18 07:00 01/31/18 07:00 01/31/18 07:00 01/31/18 07:00 General appearance: Present: A&O X 2, pleasant, no acute distress, answers questions appropriately Exam: Patient remains somewhat confused with a history of dementia. Patient unable to oriented to time - Head Head exam: Present: atraumatic, normocephalic - Eye Eye exam: Present: PERRL, conjuntiva pink, sclera anicteric Pupils: Present: PERRL - Neck Neck exam general surgery: Present: supple, trachea midline. Absent: lymphadenopathy - Respiratory Respiratory exam: Present: CTAB. Absent: accessory muscle use, rales, rhonchi, wheezes - Cardiovascular Cardiovascular exam: Present: RRR, +S1, +S2. Absent: diastolic murmur, gallop, rubs, systolic murmur - GI/Abdominal GI/Abdominal exam: Present: normal bowel sounds, soft, no peritoneal signs. Absent: distended, tenderness - Extremities Exam Extremities exam: Present: warm, radial pulses palpable and symmetrical. Absent : calf tenderness, cyanotic, pedal edema Additional comments: Right hip surgical incision appears to be dry and intact with no edema noted - Neurological Exam Neurological exam: Present: CN II-XII intact, no focal deficits. Absent: pronater drift, facial droop, speech deficit - Skin Skin exam: Present: dry, intact Internal Medicine: Result - Labs CBC & Chem 7: 01/24/18 05:15 01/24/18 05:15 Consult Discharge Plan - Plan Referrals: NONE,PCP [Primary Care Provider] -
[2018-01-31] MEDS: Cholecalciferol (D-3) 1,000 UNIT TABLET PO SCH (10:16)
[2018-01-31] MEDS: Aspirin Enteric Coated 81 MG Tablet PO SCH (10:16)
[2018-01-31] MEDS: Acetaminophen 325 MG TABLET PO PRN ×2 (10:16→20:58)
[2018-01-31] MEDS: risperiDONE 1 MG TABLET PO SCH (20:57)
[2018-02-01] MEDS: *HR* Enoxaparin 40 MG/0.4 ML SYRINGE SQ SCH (05:42)
[2018-02-01] MEDS: Cholecalciferol (D-3) 1,000 UNIT TABLET PO SCH (10:37)
[2018-02-01] MEDS: Aspirin Enteric Coated 81 MG Tablet PO SCH (10:37)
--- NOTE | 2018-02-01 11:14 | Internal Med Progress Note ---
Date of Encounter: 02/01/18 Time of Encounter: 11:11 - Assessment and plan (1) History of repair of right hip joint Current Visit: Yes Status: Acute Assessment and plan: No acute issues. Surgical dressing remains in place and appears dry and intact. Noted ecchymosis around surgical site appears to resolved. No edema noted. Afebrile. Patient has been progressing well with physical therapy. (2) Dementia Current Visit: No Status: Chronic Assessment and plan: No acute issues. Patient remains somewhat confused but no behavior issues have been reported by nursing. Qualifiers: Dementia type: unspecified type Dementia behavioral disturbance: without behavioral disturbance Qualified Code(s): F03.90 - Unspecified dementia without behavioral disturbance (3) Urinary retention Current Visit: Yes Status: Acute Assessment and plan: No acute issues. Vera catheter remains in place. Patient to follow-up with urology due to urine retention. (4) Chest pain Current Visit: Yes Status: Acute Assessment and plan: Patient denies any chest discomforts or palpitations. We will continue to monitor. Qualifiers: Chest pain type: unspecified Qualified Code(s): R07.9 - Chest pain, unspecified (5) HTN (hypertension) Current Visit: No Status: Chronic Assessment and plan: Patient with complaints of dizziness today. Systolic blood pressure was 96. Patient currently on minimal hypertension medications. We will continue with current medications and monitor vital signs closely. Will obtain labs and urinalysis for reevaluation.. Qualifiers: Hypertension type: essential hypertension Qualified Code(s): I10 - Essential (primary) hypertension - Time Spent With Patient less than 15 minutes - Subjective Interval history: Patient remains somewhat confused, but is appropriate during conversation. Patient denies any current discomforts or shortness of breath. Patient does complain of dizziness. Vital signs were obtained which shows systolic blood pressure 96. Patient denies any palpitations or nausea. - Constitutional Vitals: Temp Pulse Resp BP Pulse Ox 97.5 F L 70 16 117/72 93 02/01/18 07:00 02/01/18 07:00 02/01/18 07:00 02/01/18 07:00 02/01/18 07:00 General appearance: Present: A&O X 2, pleasant, no acute distress, answers questions appropriately - Head Head exam: Present: atraumatic, normocephalic - Eye Eye exam: Present: PERRL, conjuntiva pink, sclera anicteric Pupils: Present: PERRL - Neck Neck exam general surgery: Present: supple, trachea midline. Absent: lymphadenopathy - Respiratory Respiratory exam: Present: CTAB. Absent: accessory muscle use, rales, rhonchi, wheezes - Cardiovascular Cardiovascular exam: Present: RRR, +S1, +S2. Absent: diastolic murmur, gallop, rubs, systolic murmur - GI/Abdominal GI/Abdominal exam: Present: normal bowel sounds, soft, no peritoneal signs. Absent: distended, tenderness - Extremities Exam Extremities exam: Present: warm, radial pulses palpable and symmetrical. Absent : calf tenderness, cyanotic, pedal edema Additional comments: Right hip surgical incision appears dry and intact. No edema. - Neurological Exam Neurological exam: Present: CN II-XII intact, oriented X3, no focal deficits. Absent: pronater drift, facial droop, speech deficit - Skin Skin exam: Present: dry, intact Internal Medicine: Result - Labs CBC & Chem 7: 01/24/18 05:15 01/24/18 05:15 Consult Discharge Plan - Plan Referrals: NONE,PCP [Primary Care Provider] -
[2018-02-01 21:24] LABS: Bilirubin,Urine Negative (Negative); Blood,Urine Moderate (Negative); Clarity,Urine Clear (Clear); Color,Urine Yellow (Yellow); Glucose,Urine (UA) Normal (Normal); Ketones,Urine Negative (Negative); Leukocyte Esterase,Urine Moderate (Negative); Nitrite,Urine Positive (Negative); Protein,Urine 30 mg/dL (Neg-Trace); Urobilinogen,Urine Normal (Normal)
[2018-02-01 21:54] LABS: Bacteria,Urine Many per hpf (None-Few); RBC,Urine 0-3 per hpf (0-3); Squamous Epithelial Cell,Urine Few per lpf (None-Few); Transitional Epi Cells,Urine Few per hpf (None-Few); WBC,Urine TNTC per hpf (0-3)
[2018-02-01] MEDS: risperiDONE 1 MG TABLET PO SCH (22:56)
[2018-02-02] MEDS: *HR* Enoxaparin 40 MG/0.4 ML SYRINGE SQ SCH (06:36)
[2018-02-02 07:08] LABS: Hematocrit 33.2 % (37.5-50.1); Hemoglobin 11.1 g/dL (12.9-16.9); Mean Corpuscular HGB Conc 33.4 g/dL (31.6-35.5); Mean Corpuscular Hemoglobin 32.4 pg (28.0-33.3); Mean Corpuscular Volume 96.8 fL (83.0-100.0); Mean Platelet Volume 9.3 fL (9.4-12.4); Platelet Count 301 K/mcL (140-400); Red Blood Count 3.43 M/mcL (4.19-5.50); Red Cell Distribution Width 14.6 % (11.5-14.5)
[2018-02-02] MEDS: Cholecalciferol (D-3) 1,000 UNIT TABLET PO SCH (08:28)
[2018-02-02] MEDS: traMADol 50 MG TABLET PO PRN ×2 (08:28→17:03)
[2018-02-02] MEDS: Aspirin Enteric Coated 81 MG Tablet PO SCH (08:29)
[2018-02-02 08:34] LABS: Alanine Aminotransferase 11 Units/L (7-52); Albumin/Globulin Ratio 1.3 (1.1-2.2); Alkaline Phosphatase 141 Units/L (34-104); Aspartate Amino Transferase 18 Units/L (13-39); BUN/Creatinine Ratio 22 (6-26); Blood Urea Nitrogen 21 mg/dL (8-23); Calcium 8.8 mg/dL (8.6-10.3); Carbon Dioxide 27 mEq/L (23-29); Chloride 104 mEq/L (98-107); Globulin 2.4 g/dL (2.4-3.5); Glucose 89 mg/dL (70-105); Magnesium 1.9 mg/dL (1.6-2.6); Osmolality,Calculated 284 (280-300); Potassium 4.1 mEq/L (3.5-5.1); Sodium 136 mEq/L (136-145); Total Protein 5.4 g/dL (6.4-8.9); eGFR For African Americans > 60 (> 60); eGFR For Non-African Americans > 60 (> 60)
--- NOTE | 2018-02-02 09:48 | Internal Med Progress Note ---
Date of Encounter: 02/02/18 Time of Encounter: 09:46 - Assessment and plan (1) History of repair of right hip joint Current Visit: Yes Status: Acute Assessment and plan: No acute issues. Surgical dressing remains in place and appears dry and intact. Noted ecchymosis around surgical site appears to resolved. No edema noted. Afebrile. Patient has been progressing well with physical therapy. (2) Dementia Current Visit: No Status: Chronic Assessment and plan: No acute issues. Patient remains somewhat confused but no behavior issues have been reported by nursing. Qualifiers: Dementia type: unspecified type Dementia behavioral disturbance: without behavioral disturbance Qualified Code(s): F03.90 - Unspecified dementia without behavioral disturbance (3) Urinary retention Current Visit: Yes Status: Acute Assessment and plan: No acute issues. Vera catheter remains in place. Patient to follow-up with urology due to urine retention. Urinalysis obtained which shows UTI. Started on macrobid. (4) Chest pain Current Visit: Yes Status: Acute Assessment and plan: Patient denies any chest discomforts or palpitations. We will continue to monitor. Qualifiers: Chest pain type: unspecified Qualified Code(s): R07.9 - Chest pain, unspecified (5) HTN (hypertension) Current Visit: No Status: Chronic Assessment and plan: VSS. Patient denies any dizziness today. Will continue on current meds. Qualifiers: Hypertension type: essential hypertension Qualified Code(s): I10 - Essential (primary) hypertension - Time Spent With Patient less than 15 minutes - Subjective Interval history: Patient remains somewhat confused, but is appropriate during conversation. Patient denies any current discomforts or shortness of breath. Patient denies any palpitations or nausea. VSS today and patient denies any dizziness. Labs reviewed with U/A showing positive for UTI. - Constitutional Vitals: Temp Pulse Resp BP Pulse Ox 98 F 69 14 102/70 96 02/02/18 08:00 02/02/18 08:00 02/02/18 08:00 02/02/18 08:00 02/02/18 08:00 General appearance: Present: A&O X 2, pleasant, no acute distress, answers questions appropriately Exam: remains mildly confused, being unable to relate time. Patient also becomes confused when asked complexed questions. - Head Head exam: Present: atraumatic, normocephalic - Eye Eye exam: Present: PERRL, conjuntiva pink, sclera anicteric Pupils: Present: PERRL - Neck Neck exam general surgery: Present: supple, trachea midline. Absent: lymphadenopathy - Respiratory Respiratory exam: Present: CTAB. Absent: accessory muscle use, rales, rhonchi, wheezes - Cardiovascular Cardiovascular exam: Present: RRR, +S1, +S2. Absent: diastolic murmur, gallop, rubs, systolic murmur - GI/Abdominal GI/Abdominal exam: Present: normal bowel sounds, soft, no peritoneal signs. Absent: distended, tenderness - Extremities Exam Extremities exam: Present: warm, radial pulses palpable and symmetrical. Absent : calf tenderness, cyanotic, pedal edema Additional comments: Right hip surgical site remains dry and intact with no signs of infection noted. No limits to ROM noted. No edema. - Neurological Exam Neurological exam: Present: CN II-XII intact, no focal deficits. Absent: pronater drift, facial droop, speech deficit Additional comments: Ox2, but not to time. No other focal deficits noted - Skin Skin exam: Present: dry, intact Internal Medicine: Result - Labs CBC & Chem 7: 02/02/18 06:58 02/02/18 06:58 Labs: Short CBC 02/02/18 Range/Units 06:58 WBC 8.1 (4.3-11.1) K/mcL Hgb 11.1 L (12.9-16.9) g/dL Hct 33.2 L (37.5-50.1) % Plt Count 301 (140-400) K/mcL BMP 02/02/18 06:58 Sodium 136 Potassium 4.1 Chloride 104 Carbon Dioxide 27 BUN 21 Creatinine 0.94 Glucose 89 Calcium 8.8 Liver Function 02/02/18 Range/Units 06:58 Total Bilirubin 1.0 (0.3-1.0) mg/dL AST 18 (13-39) Units/L ALT 11 (7-52) Units/L Alkaline Phosphatase 141 H (34-104) Units/L Albumin 3.0 L (3.5-5.7) g/dL Urine 02/01/18 Range/Units 21:00 Urine Color Yellow (Yellow) Urine Clarity Clear (Clear) Urine pH 7.0 (5.0-8.0) pH Units Ur Specific [place] 1.020 (1.010-1.025) Urine Protein 30 H (Neg-Trace) mg/dL Urine Glucose (UA) Normal (Normal) mg/dL Consult Discharge Plan - Plan Referrals: NONE,PCP [Primary Care Provider] -
[2018-02-02] MEDS: Acetaminophen 325 MG TABLET PO PRN (13:22)
[2018-02-02] MEDS: Nitrofurantoin (BID) 100 MG CAPSULE PO SCH (17:03)
[2018-02-02] MEDS: risperiDONE 1 MG TABLET PO SCH (19:32)
[2018-02-03] MEDS: *HR* Enoxaparin 40 MG/0.4 ML SYRINGE SQ SCH (05:19)
[2018-02-03] MEDS: Aspirin Enteric Coated 81 MG Tablet PO SCH (08:50)
[2018-02-03] MEDS: Cholecalciferol (D-3) 1,000 UNIT TABLET PO SCH (08:50)
[2018-02-03] MEDS: Nitrofurantoin (BID) 100 MG CAPSULE PO SCH (08:50)
[2018-02-03] MEDS: traMADol 50 MG TABLET PO PRN (10:40)
--- NOTE | 2018-02-03 13:37 | Internal Med Progress Note ---
Date of Encounter: 02/03/18 Time of Encounter: 13:35 - Assessment and plan (1) History of repair of right hip joint Current Visit: Yes Status: Acute Assessment and plan: No acute issues. Surgical incision appears dry and intact. No edema noted. Afebrile. Patient has been progressing well with physical therapy. (2) Dementia Current Visit: No Status: Chronic Assessment and plan: No acute issues. Patient remains somewhat confused but no behavior issues have been reported by nursing. Qualifiers: Dementia type: unspecified type Dementia behavioral disturbance: without behavioral disturbance Qualified Code(s): F03.90 - Unspecified dementia without behavioral disturbance (3) Urinary retention Current Visit: Yes Status: Acute Assessment and plan: No acute issues. Vera catheter remains in place. Patient to follow-up with urology due to urine retention. Urinalysis obtained which shows UTI. Started on macrobid. (4) HTN (hypertension) Current Visit: No Status: Chronic Assessment and plan: VSS. Patient denies any dizziness today. Will continue on current meds. Qualifiers: Hypertension type: essential hypertension Qualified Code(s): I10 - Essential (primary) hypertension (5) Otitis media Current Visit: Yes Status: Acute Assessment and plan: Patient appears to have otitis media to right ear with right TM appearing very pale/white. We will start on Augmentin Qualifiers: Otitis media type: unspecified Laterality: right Qualified Code(s): H66.91 - Otitis media, unspecified, right ear - Time Spent With Patient less than 15 minutes - Subjective Interval history: Patient remains somewhat confused, but is appropriate during conversation. Patient denies any current discomforts or shortness of breath. Patient denies any palpitations or nausea. Patient complains of earache to his right ear. - Constitutional Vitals: Temp Pulse Resp BP Pulse Ox 97.6 F 74 16 99/63 97 02/03/18 07:57 02/03/18 07:57 02/03/18 07:57 02/03/18 07:57 02/03/18 07:57 General appearance: Present: A&O X 2, pleasant, no acute distress, answers questions appropriately - Head Head exam: Present: atraumatic, normocephalic - Eye Eye exam: Present: PERRL, conjuntiva pink, sclera anicteric Pupils: Present: PERRL - ENT Additional comments: Patient's TM on the right appears very white/pale. No bulging noted. TM on the left appears steely tracey. - Neck Neck exam general surgery: Present: supple, trachea midline. Absent: lymphadenopathy - Respiratory Respiratory exam: Present: CTAB. Absent: accessory muscle use, rales, rhonchi, wheezes - Cardiovascular Cardiovascular exam: Present: RRR, +S1, +S2. Absent: diastolic murmur, gallop, rubs, systolic murmur - GI/Abdominal GI/Abdominal exam: Present: normal bowel sounds, soft, no peritoneal signs. Absent: distended, tenderness - Extremities Exam Extremities exam: Present: warm, radial pulses palpable and symmetrical. Absent : calf tenderness, cyanotic, pedal edema Additional comments: Right hip surgical incision appears dry and intact. No edema or ecchymosis noted. - Neurological Exam Neurological exam: Present: CN II-XII intact, no focal deficits. Absent: pronater drift, facial droop, speech deficit Additional comments: Patient is oriented 2 but not to time. - Skin Skin exam: Present: dry, intact Internal Medicine: Result - Labs CBC & Chem 7: 02/02/18 06:58 02/02/18 06:58 Consult Discharge Plan - Plan Referrals: NONE,PCP [Primary Care Provider] -
[2018-02-03] MEDS ORDERED: Ondansetron ODT 4 MG TAB.RAPDIS SL PRN (20:18)
[2018-02-03] MEDS: risperiDONE 1 MG TABLET PO SCH (20:53)
[2018-02-03] MEDS: Acetaminophen 325 MG TABLET PO PRN (20:54)
[2018-02-04] MEDS: *HR* Enoxaparin 40 MG/0.4 ML SYRINGE SQ SCH (05:54)
[2018-02-04 07:16] VITALS: BP 112/74
[2018-02-04] MEDS: Aspirin Enteric Coated 81 MG Tablet PO SCH (08:54)
[2018-02-04] MEDS: Cholecalciferol (D-3) 1,000 UNIT TABLET PO SCH (08:54)
--- NOTE | 2018-02-04 10:27 | Discharge Summary ---
Date of Encounter: 02/04/18 Time of Encounter: 10:25 - Discharge Diagnosis (1) History of repair of right hip joint Priority: Primary Status: Acute Comments: No acute issues. Surgical wound appears healthy and healing well. To continue with follow-up with orthopedics on February 22. (2) Dementia Priority: Secondary Status: Chronic Comments: Patient remains pleasantly previous. Patient does participate well with therapy and conversation is appropriate. Qualifiers: Dementia type: unspecified type Dementia behavioral disturbance: without behavioral disturbance Qualified Code(s): F03.90 - Unspecified dementia without behavioral disturbance (3) Urinary retention Priority: Secondary Status: Acute Comments: Patient is to follow-up with urology concerning urinary retention. (4) HTN (hypertension) Priority: Secondary Status: Chronic Comments: Vital signs remained stable during stay in facility. Patient to continue with home medications Qualifiers: Hypertension type: essential hypertension Qualified Code(s): I10 - Essential (primary) hypertension (5) Otitis media Priority: Secondary Status: Acute Comments: Right otitis media. Patient to continue on clindamycin 300 mg 3 times a day 10 days Qualifiers: Otitis media type: unspecified Laterality: right Qualified Code(s): H66.91 - Otitis media, unspecified, right ear Hospital course: Mr. Gilliland is a 82 year old male who had a right total hip replacement. Patient experienced chest pain during his recovery postoperatively and was evaluated by cardiology. Patient was unable to perform stress test but was ruled out by enzymes. Patient returned for rehabilitation with no further complaints chest pain or cardiac issues. Right hip surgical site has healed well. Patient has been in physical therapy has progressed well but continues to require a walker for ambulation. Patient did have complaints of right earache with dizziness and nausea. Found to have right otitis media and was started on clindamycin on 02/04 and is to continue on antibiotics for 10 days. Patient is continue with physical therapy at home. Patient to continue with home medications and follow up with PCP and orthopedics Discharge discussed with: patient Time spent discussing smoking cessation with patient: 3 to 10 minutes - Time Spent with Patient Total time spent providing and/or coordinating discharge services: Less than 30 minutes - Discharge Medications Home Medications: Aspirin [Lo-Dose Aspirin EC] 81 mg PO DAILY 01/10/18 [History] Donepezil HCl [Aricept] 5 mg PO DAILY 01/10/18 [History] Acetaminophen [Tylenol] 650 mg PO Q6HR PRN tablet 01/14/18 [Rx] Cholecalciferol (D-3) [Vitamin D] 2,000 unit PO DAILY tablet 01/14/18 [Rx] Enoxaparin [Lovenox] 40 mg SQ 0600 syringe 01/14/18 [Rx] Metoprolol [Lopressor] 25 mg PO BID tablet 01/14/18 [Rx] risperiDONE [RisperDAL] 0.25 mg PO HS tablet 01/14/18 [Rx] DiphenhydraMINE [Benadryl] 1 appl TP QID PRN tube 01/20/18 [Rx] DiphenhydraMINE [Benadryl] 25 mg PO Q6HR PRN capsule 01/20/18 [Rx] Nitroglycerin 0.4 mg SL Q5MIN PRN tab.subl 01/20/18 [Rx] Allergies/Adverse Reactions: 3 Allergy/AdvReac Type Severity Reaction Status Date / Time No Known Allergies Allergy Verified 01/10/18 15:12 Date of admission: 01/20/18 20:11 Primary care physician: PCP NONE Consults: 01/20/18 20:47 Consult to Occupational Therapy [CONS] Routine Comment: eval Reason for Consult: eval Does patient have active BEDREST order?: No Is patient medically & hemodynamically stable?: Yes Consult to Physical Therapy [CONS] Routine Comment: eval Reason for Consult: eval Does patient have active BEDREST order?: No Is patient medically & hemodynamically stable?: Yes Consult to Recreational Therapy [CONS] Routine Comment: Consult to Bolt Machine Operator [CONS] Routine Reason for SW Consult: eval 01/25/18 13:46 Consult to Urology [CONS] Routine Consulting Provider: Urology Jana Reason for Consult: urinary difficulty Time Notified: 15:00 Call Completed: No Discharging clinician: Rishabh Baptiste - Constitutional Vitals: Temp Pulse Resp BP Pulse Ox 98.0 F 81 16 112/74 97 02/04/18 07:12 02/04/18 07:12 02/04/18 07:12 02/04/18 07:12 02/04/18 07:12 General appearance: Present: A&O X 2, pleasant, no acute distress, answers questions appropriately Exam: Patient has difficulty at times relating to time. - Head Head exam: Present: atraumatic, normocephalic - Eye Eye exam: Present: PERRL, conjuntiva pink, sclera anicteric Pupils: Present: PERRL - Neck Neck exam general surgery: Present: supple, trachea midline. Absent: lymphadenopathy - Respiratory Respiratory exam: Present: CTAB. Absent: accessory muscle use, rales, rhonchi, wheezes - Cardiovascular Cardiovascular exam: Present: RRR, +S1, +S2. Absent: diastolic murmur, gallop, rubs, systolic murmur - GI/Abdominal GI/Abdominal exam: Present: normal bowel sounds, soft, no peritoneal signs. Absent: distended, tenderness - Extremities Exam Extremities exam: Present: normal inspection, warm, radial pulses palpable and symmetrical. Absent: calf tenderness, cyanotic, pedal edema Additional comments: Right hip surgical site appears healthy and intact. No edema or ecchymosis. Sutures be removed on 427 - Neurological Exam Neurological exam: Present: CN II-XII intact, no focal deficits. Absent: pronater drift, facial droop, speech deficit Additional comments: Patient oriented 2 but not to time. No other neurological focal deficits noted - Skin Skin exam: Present: dry, intact - Patient Status Disposition: Home, Self-Care Condition: Good Functional capacity at discharge: uses cane/walker Overall status at discharge: patient is progressing back to baseline - Discharge Instructions Instructions: Vera Catheter Placement and Care (DC) Follow Up With: Rinku Ramos MD [Partnered Physician] - 02/09/18 1:00 pm (Appointment will be at [facility]) Shireen Arguello, PhD [Non-Partnered Physician] - 02/10/18 2:40 pm Junito Michel MD [Non-Partnered Physician] - 02/22/18 9:45 am - Diet and Activity Activity: ambulate only with your walker, as per physical therapy, resume usual activities as tolerated Diet: advance to your usual diet, low salt diet
== END 2018-02-04 12:15 | disposition home or self-care (01) | DRG 560 ==
LOC: INPGRE 20:11